=== PATIENT | male | born 1955 | race Caucasian/White ===

== ENCOUNTER 2018-11-06 10:14 | Emergency (ER) | payer BC ==
[~2018-11-06] VITALS: Ht 182.9 cm; Wt 163.7 kg
[2018-11-06 10:16] VITALS: Ht 182.9 cm; Wt 163.7 kg
[2018-11-06 12:06] VITALS: BP 155/84
== END 2018-11-06 12:06 | disposition home or self-care (01) ==
LOC: ED 10:14
DX: S50.851A Superficial foreign body of right forearm, initial encounter (principal); I10 Essential (primary) hypertension; Z98.890 Other specified postprocedural states; W45.8XXA Other foreign body or object entering through skin, initial encounter; Y93.89 Activity, other specified; Y92.89 Other specified places as the place of occurrence of the external cause; Y99.8 Other external cause status
CPT/HCPCS: 90715; J2001